=== PATIENT | male | born 1950 | race Caucasian/White ===

== ENCOUNTER 2023-03-31 06:05 | Day surgery (SDC) | payer OTHER ==
[~2023-03-31] VITALS: Ht 177.8 cm; Wt 92.1 kg
[~2023-03-31 06:05] MED LIST: ATORVASTATIN CA10 MG PO; CARVEDILOL12.5 MG; ELIQUIS2.5 MG PO; VALSARTAN80 MG PO
[2023-03-31] MEDS ORDERED: CEFAZOLIN SODIUM 1,000 MG VIAL ONE (10:21)
[2023-03-31] MEDS ORDERED: CEFAZOLIN SODIUM 1,000 MG VIAL IV ONE (11:30)
== END 2023-03-31 13:40 | disposition home or self-care (01) ==
LOC: EDBD → CIR.AMB 06:05
PROVIDERS: ATTEND Surgery Surgery of the Hand
DX: M65.841 Other synovitis and tenosynovitis, right hand (principal)